=== PATIENT | female | born 1995 | race African-American/Black ===

== ENCOUNTER 2017-08-24 14:24 | Emergency (ER) | payer OTHER ==
[2017-08-24 14:30] VITALS: BP 133/63; PULSE 84; TEMP 98.4; BMI 48.9
--- NOTE | 2017-08-24 15:01 | PDOC ---
History of Present Illness - General Chief Complaint: Chest Pain Stated Complaint: CHEST PAIN - History of Present Illness Initial Comments: 21-year-old female without comorbidities presents for evaluation of one day of chest pain with inspiration after doing physical activity. 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 She has no history of clots malignancies, no surgery, no hematologic disorders. No other associated symptoms besides chest pain with inspiration. 08/24/17 14:57 Past History - Past Medical History Allergies/Adverse Reactions: Allergies Allergy/AdvReac Type Severity Reaction Status Date / Time No Known Allergies Allergy Verified 08/24/17 14:28 Home Medications: Ambulatory Orders Ibuprofen [Motrin -] 600 mg PO TID #30 tablet 08/24/17 COPD: No - Suicide/Smoking/Psychosocial Hx Smoking History: Never smoked Information on smoking cessation initiated: No Hx Alcohol Use: No Drug/Substance Use Hx: No Substance Use Type: None Review of Systems - Review of Systems Cardiac (ROS): Yes: Chest Pain All Other Systems: Reviewed and Negative *Physical Exam - Vital Signs Last Vital Signs Temp Pulse Resp BP Pulse Ox 98.4 F 84 18 133/63 100 08/24/17 14:28 08/24/17 14:28 08/24/17 14:28 08/24/17 14:28 08/24/17 14:28 - Physical Exam Comments: GENERAL: The patient is awake, alert, and fully oriented, in no acute distress. HEAD: Normal with no signs of trauma. EYES: sclera anicteric, conjunctiva clear. ENT: Ears normal NECK: Normal range of motion LUNGS: Breath sounds equal, clear to auscultation bilaterally. No wheezes, and no crackles. HEART: S1 and S2 without murmur, rub or gallop. There is tenderness at the left costochondral junction on about ribs 3 and 4 ABDOMEN: Soft, nontender, normoactive bowel sounds. No guarding, no rebound. No masses. EXTREMITIES: Normal range of motion, no edema. No clubbing or cyanosis. No cords, erythema, or tenderness. Compartments are soft and nontender. NEUROLOGICAL: Cranial nerves II through XII grossly intact. Normal speech, normal gait. PSYCH: Normal mood, normal affect. SKIN: Warm, Dry, normal turgor, no rashes or lesions noted. 08/24/17 14:58 Medical Decision Making - Medical Decision Making Given the patient's past medical history recent increase in physical activity and reproducible chest pain feel it safe to let her go with a diagnosis of costochondritis. 08/24/17 14:59 08/24/17 15:00 VSS EKG normal *DC/Admit/Observation/Transfer Diagnosis at time of Disposition: Costochondral chest pain - Discharge Dispostion Disposition: HOME Condition at time of disposition: Stable Decision to Admit order: No - Referrals Referrals: Eliana Porras MD [Primary Care Provider] - - Patient Instructions Printed Discharge Instructions: Aide, DI for Costochondritis Additional Instructions: Return to the emergency room should her symptoms worsen or go unresolved. Please take the Motrin that I prescribed few with food 3 times a day if you have pain. Please discontinue the medication if it bothers her stomach. Return to the emergency room should her symptoms worsen or go unresolved and follow-up with your primary care doctor in 1-2 days for further evaluation and treatment options. - Post Discharge Activity
--- NOTE | 2017-08-25 14:22 | EKG ---
Test Reason : Blood Pressure : / mmHG Vent. Rate : 086 BPM Atrial Rate : 086 BPM P-R Int : 138 ms QRS Dur : 072 ms QT Int : 344 ms P-R-T Axes : 051 010 028 degrees QTc Int : 411 ms NORMAL SINUS RHYTHM NORMAL ECG WHEN COMPARED WITH ECG OF 23-MAR-2017 12:20, NO SIGNIFICANT CHANGE WAS FOUND Confirmed by ALIDA VERMA MD ([id number]) on 08/25/2017 2:22:30 PM Referred By: Confirmed By:ALIDA VERMA MD
== END 2017-08-24 15:04 | disposition home or self-care (01) ==
LOC: JERFT 14:24
DX: M94.0 Chondrocostal junction syndrome [Tietze] (principal)
CPT/HCPCS: 93005; 93010; 99281-25

== ENCOUNTER 2019-02-02 11:28 | Emergency (ER) | payer OTHER ==
[2019-02-02 11:43] VITALS: BP 133/82; PULSE 80; TEMP 98; BMI 41.2
--- NOTE | 2019-02-02 12:15 | PDOC ---
History of Present Illness - General Chief Complaint: Pain Stated Complaint: RT KNEE PAIN Time Seen by Provider: 02/02/19 12:02 History Source: Patient - History of Present Illness Initial Comments: 02/02/19 12:32 Chief complaint: Right knee injury Patient is a 23-year-old female, healthy, who was walking yesterday with grocery bags, tripped on the sidewalk, fell on her right knee. Patient complaining of pain to same. Patient is ambulatory but limping. Patient took Motrin 200 mg this morning. Patient denies GENERAL/CONSTITUTIONAL: No fever, weakness. dizziness HEAD, EYES, EARS, NOSE AND THROAT: No change in vision. No ear pain or discharge. No sore throat. CARDIOVASCULAR: No chest pain RESPIRATORY: No shortness of breath or cough GASTROINTESTINAL: No pain, nausea, vomiting, diarrhea or constipation GENITOURINARY: No dysuria MUSCULOSKELETAL: No neck or back pain, + right knee SKIN: No rash NEUROLOGIC: No headache, vertigo, loss of consciousness, or loss of sensation. GENERAL: The patient is awake, alert, and fully oriented, in no acute distress. HEAD: Normal with no signs of trauma. EYES: Pupils equal, round and reactive to light, sclera anicteric, conjunctiva clear. ENT: pharynx: no erythema, no exudate, uvula midline NECK: supple CHEST: clear, nontender, rr ABD: soft, nontender BACK: no tenderness or signs of injury EXTREMITIES: Right knee with no gross swelling, mild tenderness across the anterior area, painful range of motion, no other tenderness or findings to the extremity, neurovascular intact. Rest of extremities, normal range of motion, no edema. NEUROLOGICAL: Normal speech, no focal findings, limping secondary to pain SKIN: Warm, Dry Past History - Past Medical History Allergies/Adverse Reactions: Allergies Allergy/AdvReac Type Severity Reaction Status Date / Time No Known Drug Allergies Allergy Verified 02/02/19 11:43 lactose AdvReac Intermediate DIARRHEA / Verified 02/02/19 11:43 ABDOMINAL CRAMPING Home Medications: Ambulatory Orders NK [No Known Home Medication] 02/01/19 Anemia: No Asthma: No Cancer: No Cardiac Disorders: No CVA: No COPD: No CHF: No Dementia: No Diabetes: No GI Disorders: No Disorders: No HTN: No Hypercholesterolemia: No Liver Disease: No Seizures: No Thyroid Disease: No - Surgical History Abdominal Surgery: No Appendectomy: No Cardiac Surgery: No Cholecystectomy: No Lung Surgery: No Neurologic Surgery: No Orthopedic Surgery: No - Psycho Social/Smoking Cessation Hx Smoking History: Never smoked Have you smoked in the past 12 months: No Hx Alcohol Use: Yes (RARELY) Drug/Substance Use Hx: No Substance Use Type: Alcohol Hx Substance Use Treatment: No *Physical Exam - Vital Signs Last Vital Signs Temp Pulse Resp BP Pulse Ox 98 F 80 18 133/82 98 02/02/19 11:40 02/02/19 11:40 02/02/19 11:40 02/02/19 11:40 02/02/19 11:40 Medical Decision Making - Medical Decision Making 02/02/19 12:34 Healthy 23-year-old female who tripped and fell yesterday with right knee pain. Patient will get an x-ray due to falling on her knee. She is ambulatory but limping. Will give Motrin. Will reassess. X-ray shows no acute issues, patient would prefer cane over crutches she will follow with Ortho Discussed issues, findings, results, applicable medications and treatments and follow-up. All these were understood and all questions were answered 02/02/19 12:57 Discharge - Discharge Information Problems reviewed: Yes Clinical Impression/Diagnosis: Right knee injury Qualifiers: Encounter type: initial encounter Qualified Code(s): S89.91XA - Unspecified injury of right lower leg, initial encounter Condition: Stable Disposition: HOME - Admission No - Follow up/Referral Referrals: Roby Molina MD [Primary Care Provider] - - Patient Discharge Instructions Additional Instructions: Elevate, wear splint You can apply ice for 20 minutes every 2 hours for the next 2 days Motrin 600 mg every 6 hours for pain. Call the orthopedist tomorrow - Post Discharge Activity
[2019-02-02] MEDS ORDERED: IBUPROFEN 400 MG TABLET (FP) PO ONE ×2 (12:18→12:54)
== END 2019-02-02 13:11 | disposition home or self-care (01) ==
LOC: JERFT 11:28
DX: S89.81XA Other specified injuries of right lower leg, initial encounter (principal); M25.561 Pain in right knee; W01.0XXA Fall on same level from slipping, tripping and stumbling without subsequent striking against object, initial encounter; Y93.01 Activity, walking, marching and hiking; Y92.480 Sidewalk as the place of occurrence of the external cause; Y99.8 Other external cause status; E66.9 Obesity, unspecified; Z68.41 Body mass index [BMI] 40.0-44.9, adult; Z91.02 Food additives allergy status
CPT/HCPCS: 73562-TC-RT-FY; 99281-25

== ENCOUNTER 2019-02-05 08:23 | Inpatient (IN) | payer OTHER ==
[2019-02-01 11:32] VITALS: BMI 41.2
[2019-02-05] MEDS ORDERED: BUPIVACAINE HCL/PF 2.5 MG/ML - 30 ML VIAL IJ ONE (08:35)
[2019-02-05] MEDS ORDERED: BUPIVACAINE HCL/PF 0.5% (5 MG/ML) 30 ML VIAL IJ ONE (08:38)
[2019-02-05] MEDS ORDERED: MIDAZOLAM HCL 2 MG/2 ML SINGLE DOSE VIAL ONE ×2 (08:38→08:54)
[2019-02-05] MEDS ORDERED: ROCURONIUM BROMIDE 50 MG/5 ML SYRINGE ONE (08:53)
[2019-02-05] MEDS ORDERED: PROPOFOL 20 ML ONE (08:53)
[2019-02-05] MEDS ORDERED: fentaNYL CITRATE 250 MCG/5 ML VIAL ONE (08:53)
[2019-02-05] MEDS ORDERED: ceFAZolin SODIUM 1 GM VIAL ONE (08:54)
[2019-02-05] MEDS ORDERED: KETOROLAC TROMETHAMINE 30 MG/1 ML VIAL ONE (08:54)
[2019-02-05] MEDS ORDERED: DEXAMETHASONE SOD PHOSPHATE 4 MG/1 ML VIAL ONE (08:54)
[2019-02-05] MEDS ORDERED: LIDOCAINE HCL/PF 2% SDV 5ML VIAL ONE (08:54)
[2019-02-05] MEDS ORDERED: ONDANSETRON 4 MG/2 ML VIAL ONE (08:54)
--- NOTE | 2019-02-05 09:34 | HP ---
Admitting History and Physical - Admission Chief Complaint: Morbid obesity History Source: Patient Limitations to Obtaining History: No Limitations - Past Medical History ...LMP Comment: 01/21/19 ...: No - Smoking History Smoking history: Never smoked Have you smoked in the past 12 months: No - Alcohol/Substance Use Hx Alcohol Use: Yes (RARELY) - Social History ADL: Independent Home Medications - Allergies Allergies/Adverse Reactions: Allergies Allergy/AdvReac Type Severity Reaction Status Date / Time No Known Drug Allergies Allergy Verified 02/02/19 11:43 lactose AdvReac Intermediate DIARRHEA / Verified 02/02/19 11:43 ABDOMINAL CRAMPING - Home Medications Home Medications: Ambulatory Orders NK [No Known Home Medication] 02/01/19 Family Medical History Family History: Unremarkable Review of Systems - Review of Systems Constitutional: denies: Chills, Fever Neck: reports: No Symptoms Cardiovascular: reports: No Symptoms Respiratory: reports: No Symptoms Gastrointestinal: reports: No Symptoms Neurological: reports: No Symptoms Pain Intensity: 0 Physical Examination Vital Signs: Vital Signs Temperature 98.6 F 02/05/19 08:49 Pulse Rate 81 02/05/19 08:49 Respiratory Rate 18 02/05/19 08:49 Blood Pressure 116/79 02/05/19 08:49 O2 Sat by Pulse Oximetry (%) Constitutional: Yes: Calm Cardiovascular: Yes: WNL Respiratory: Yes: WNL Gastrointestinal: Yes: Soft, Abdomen, Obese Neurological: Yes: Alert, Oriented Problem List - Problems (1) Morbid obesity due to excess calories Code(s): E66.01 - MORBID (SEVERE) OBESITY DUE TO EXCESS CALORIES (2) BMI 40.0-44.9, adult Code(s): Z68.41 - BODY MASS INDEX (BMI) 40.0-44.9, ADULT Assessment/Plan Laparoscopic possible open vertical sleeve gastrectomy possible liver biopsy, upper endoscopy
[2019-02-05] MEDS ORDERED: DESFLURANE GAS 240 ML BOTTLE IH ONE (10:16)
[2019-02-05] MEDS ORDERED: BUPIVACAINE HCL/PF 0.25% (2.5MG/ML) 10 ML VIAL IJ ONE (10:36)
[2019-02-05] MEDS ORDERED: GLYCOPYRROLATE 0.2 MG/1 ML VIAL ONE (10:44)
[2019-02-05] MEDS ORDERED: SODIUM CHLORIDE 1,000 ML IV SCH (11:30)
--- NOTE | 2019-02-05 11:31 | OPR ---
Operative Note Operative Date: 02/05/19 Pre-Operative Diagnosis: Morbid obesity; BMI 41.3 Operation: 1. Diagnostic laparoscopy. 2. Laparoscopic vertical sleeve gastrectomy. 3. Laparoscopic wedge liver biopsy. 4. Laparoscopic oversewing of gastric staple line Post-Operative Diagnosis: Same as Pre-op (as well as hepatomegaly and oozing from gastric staple line) Surgeon: Marbin Rubi Seismic Engineer: Mary Lou Diana Anesthesia: General Specimens Removed: Greater curvature of stomach. Liver biopsy. Estimated Blood Loss (mls): 30 Drains & Tubes with Location: 36 Fr Bougie Operative Report Dictated: Yes
[2019-02-05] MEDS ORDERED: FAMOTIDINE 20 MG/50 ML IVPB 20 MG/50 ML MG IVPB ONE (11:41)
[2019-02-05] MEDS: METOCLOPRAMIDE HCL INJECTION 10 MG/2 ML VIAL IVPUSH SCH ×2 (11:50→17:30)
[2019-02-05] MEDS ORDERED: LABETALOL HCL 5 MG/1 ML (100MG/20 ML VIAL) ONE (11:55)
[2019-02-05] MEDS: ACETAMINOPHEN 1000 MG/100 ML VIAL (NON FORMULARY) IVPB SCH ×2 (12:05→17:40)
[2019-02-05] MEDS ORDERED: ONDANSETRON 4 MG/2 ML VIAL IVPUSH PRN (12:07)
[2019-02-05] MEDS ORDERED: oxyCODONE HCL 5 MG TABLET PO PRN ×2 (12:07)
[2019-02-05] MEDS ORDERED: LABETALOL HCL 5 MG/1 ML (100MG/20 ML VIAL) IVPUSH ONE ×2 (12:08→12:34)
--- NOTE | 2019-02-05 12:08 | SPEC ---
DATE OF OPERATION: 02/05/2019 SURGEON: Alden Rubi MD RADIO DIVISION LIEUTENANT: ANGEL Bunch PREOPERATIVE DIAGNOSIS: Morbid obesity. POSTOPERATIVE DIAGNOSES: 1. Morbid obesity. 2. Hepatomegaly. 3. Oozing from gastric staple line. PROCEDURES: Diagnostic laparoscopy, laparoscopic vertical sleeve gastrectomy, laparoscopic wedge liver biopsy, and laparoscopic over sewing of gastric staple line for oozing. SPECIMEN: Greater curvature of the stomach and liver biopsy. ESTIMATED BLOOD LOSS: 30 mL. DRAINS: None. ANESTHESIA: GET. BOUGIE SIZE: 36-Colombian. REASON FOR PROCEDURE: This is a 23-year-old female who presents for weight loss options. After describing different options, she decided to proceed with laparoscopic, possible open, vertical sleeve gastrectomy, possible liver biopsy, upper endoscopy. The patient was seen by the respective subspecialties and cleared for surgery. The risks and benefits of the procedure were explained. These included bleeding, infection, hernia, OH, DVT, PE, injury to surrounding structures including the liver, colon, bowel, spleen, esophagus, vessel injury, nerve injury, weight regain, gastric leak, staple line leak, sleeve leak, obstruction, vitamin deficiency, hair loss and as some of the possible complications. The patient understood and signed informed consent. DESCRIPTION OF PROCEDURE: The patient was placed supine on the operating room table. The patient underwent general endotracheal intubation. The arms were brought out at 90 degrees and secured. A footboard was placed and the legs were secured laterally with padding. The abdomen was prepped and draped in the usual sterile fashion. A timeout was performed. An incision was made in the left upper quadrant and a Veress needle inserted. Pneumoperitoneum was established. Subsequently, the Veress needle was removed and a 5-mm trocar was placed under direct visualization with the laparoscope. The laparoscopic camera was then inserted and inspection of the abdominal cavity was performed. An incision was then made in the supraumbilical area and a 15-mm trocar was placed under direct visualization. A 5-mm trocar was then placed in the right upper quadrant and a 5-mm trocar was placed below the left subcostal margin. A stab wound was made in the subxiphoid area and a Ellie clamp inserted and removed to dilate the tract. A Mando liver retractor was inserted. The post was secured at the bedside by the nursing staff. The patient was placed in steep reverse Trendelenburg position and the Mando liver retractor was used to secure the liver towards the anterior abdominal wall. The pylorus was identified and 6 cm proximal to it, the lesser sac was entered using the LigaSure device. All lateral attachments to the greater curvature of the stomach, including the short gastric vessels, were ligated using the LigaSure device toward the gastrosplenic and gastrophrenic ligaments. Once this was done in its entirety, it was confirmed that all tubes within the nasal or oropharyngeal cavity, including a temperature probe were removed by Anesthesia. The bougie was then inserted by Anesthesia. Transection of the stomach was then begun staying adjacent to the bougie but away from the angularis. Transection of the stomach was performed near the portion of the stomach where the lesser sac was entered. Two laparoscopic Endo-YAQUELIN black judy were used at this location. Laparoscopic Endo YAQUELIN purple staple loads were then used for the remainder of the transection until the greater curvature of the stomach was fully transected. This was done staying close to the bougie. Care was taken to stay away from the angle of His cephalad. The staple line was then inspected. Hemostasis was identified. A leak test was then performed. It was clamped distally to the staple line. Irrigation solution was placed in the left upper quadrant and air was insufflated by Anesthesia into the sleeve. No leaks were identified. No obstruction was identified. This was done through the entirety of the staple line. The stomach was suctioned and the bougie removed fully intact under direct visualization. At this point, the irrigation solution was suctioned and again, hemostasis was noted. A wedge liver biopsy was then performed. The left lobe of the liver was identified. A portion of the edge of the left lobe of the liver was grasped. Using electrocautery, a wedge of the left liver was excised. The specimen was removed and sent off the field. Hemostasis of the wedge liver biopsy site was attained and noted using electrocautery. The 15-mm supraumbilical trocar was then removed and the greater curvature specimen removed from the site using a sponge stick brewer. A Jasbir-Gianna device was then used to close the fascia with a 0 Vicryl suture at the site. Again, hemostasis was noted. The Mando liver retractor was then removed under direct visualization. Pneumoperitoneum was desufflated. Because of oozing at the gastric staple line, the staple line needed to be oversewn. This was done with an Endo Stitch device with a Surgitek suture. Hemostasis was noted at all incision sites and Marcaine was injected at all incision sites. A 3-0 Vicryl suture was used to close the deep subcutaneous tissue at the 15-mm incision site. All incision sites were closed using 4-0 Biosyn. Sterile dressings were applied. The patient tolerated the procedure well and was transferred to the recovery room in stable condition. ALDEN RUBI M.D. [id number]
[2019-02-05 12:15] LABS: HEMATOCRIT 37.9 % (32.4-45.2); HEMOGLOBIN 12.1 GM/dl (10.7-15.3); MCH 26.1 pg (25.7-33.7); MCHC 32.1 g/dl (32.0-36.0); MEAN CELL VOLUME 81.3 fl (80-96); PLATELET COUNT 303 K/MM3 (134-434); RBC 4.66 M/mm3 (3.60-5.2); WHITE BLOOD COUNT 7.8 K/mm3 (4.0-10.8)
[2019-02-05] MEDS ORDERED: FAMOTIDINE 20 MG PREMIXED IVPB IVPB ONE (12:30)
--- NOTE | 2019-02-05 12:31 | SURG ---
Surgery Automotive Software Engineer Note Automotive Software Engineer: Mary Lou Diana PA-C Date of Service: 02/05/19 Diagnosis: Morbid obesity; BMI 41.3 Procedure: 1. Diagnostic laparoscopy. 2. Laparoscopic vertical sleeve gastrectomy. 3. Laparoscopic wedge liver biopsy. 4. Laparoscopic oversewing of gastric staple line I was present for the entirety of the operative procedure. For further detail, please refer to operative report. Visit type - Case Type Case Type: Scheduled - Emergency Emergency Visit: No - New patient This patient is new to me today: Yes Date on this admission: 02/05/19
[2019-02-05] MEDS ORDERED: hydrALAZINE HCL 20 MG/ML VIAL IVPUSH ONE (12:34)
[2019-02-05 12:37] LABS: ALBUMIN 3.7 g/dl (3.4-5.0); BILIRUBIN,TOTAL 0.3 mg/dl (0.2-1); CALCIUM 8.7 mg/dl (8.5-10); CREATININE 0.9 mg/dl (0.55-1.3); TOT PROT 7.9 g/dl (6.4-8.2)
[2019-02-05] MEDS: ONDANSETRON 4 MG/2 ML VIAL IVPUSH SCH ×2 (17:45→20:01)
[2019-02-05] MEDS: HYDROmorphone HCL CARPU-JECT 1 MG/1 ML DISP.SYRIN IVPB PRN (20:02)
[2019-02-05] MEDS: FAMOTIDINE 20 MG/50 ML IVPB 20 MG/50 ML MG IVPB SCH (21:45)
[2019-02-05] MEDS: ENOXAPARIN NA (PORCINE) 40 MG/0.4 ML DISP.SYRIN SQ SCH (22:01)
[2019-02-06] MEDS: ACETAMINOPHEN 1000 MG/100 ML VIAL (NON FORMULARY) IVPB SCH ×2 (00:08→05:45)
[2019-02-06] MEDS: METOCLOPRAMIDE HCL INJECTION 10 MG/2 ML VIAL IVPUSH SCH ×2 (00:10→05:45)
[2019-02-06] MEDS: ONDANSETRON 4 MG/2 ML VIAL IVPUSH SCH ×3 (00:10→06:41)
[2019-02-06] MEDS: HYDROmorphone HCL CARPU-JECT 1 MG/1 ML DISP.SYRIN IVPB PRN ×2 (03:15→10:15)
[2019-02-06 05:48] VITALS: BP 142/85; PULSE 98; TEMP 98.6
--- NOTE | 2019-02-06 08:03 | DS ---
Physical Exam: SUBJECTIVE: Patient seen and examined OBJECTIVE: Vital Signs Temperature 98.6 F 02/06/19 05:46 Pulse Rate 98 H 02/06/19 05:46 Respiratory Rate 19 02/06/19 05:46 Blood Pressure 142/85 02/06/19 05:46 O2 Sat by Pulse Oximetry (%) 100 02/06/19 03:09 PHYSICAL EXAM GENERAL: The patient is awake, alert, and fully oriented, in no acute distress. HEAD: Normal with no signs of trauma. EYES: PERRL, extraocular movements intact, sclera anicteric, conjunctiva clear. NECK: Trachea midline, full range of motion, supple. LUNGS: Breath sounds equal, clear to auscultation bilaterally, no wheezes, no crackles, no accessory muscle use. HEART: Regular rate and rhythm, S1, S2 without murmur, rub or gallop. ABDOMEN: Soft, nontender, nondistended, no guarding, no rebound, no hepatosplenomegaly, no masses. EXTREMITIES: warm, well-perfused, no edema. NEUROLOGICAL: Cranial nerves II through XII grossly intact. Normal speech, gait not observed. PSYCH: Normal mood, normal affect. SKIN: Warm, dry, normal turgor, no rashes or lesions noted. LABS CBC,CMP WBC 7.8 K/mm3 (4.0-10.8) 02/05/19 12:00 RBC 4.66 M/mm3 (3.60-5.2) 02/05/19 12:00 Hgb 12.1 GM/dl (10.7-15.3) 02/05/19 12:00 Hct 37.9 % (32.4-45.2) 02/05/19 12:00 MCV 81.3 fl (80-96) 02/05/19 12:00 MCH 26.1 pg (25.7-33.7) 02/05/19 12:00 MCHC 32.1 g/dl (32.0-36.0) 02/05/19 12:00 RDW 14.0 % (11.6-15.6) 02/05/19 12:00 Plt Count 303 K/MM3 (134-434) 02/05/19 12:00 MPV 10.0 fl (7.5-11.1) 02/05/19 12:00 Sodium 135 mmol/L (136-145) L 02/05/19 12:00 Potassium 4.0 mmol/L (3.5-5.1) 02/05/19 12:00 Chloride 103 mmol/L (98-107) 02/05/19 12:00 Carbon Dioxide 25 mmol/L (21-32) 02/05/19 12:00 Anion Gap 7 MMOL/L (8-16) L 02/05/19 12:00 BUN 13.0 mg/dl (7-18) 02/05/19 12:00 Creatinine 0.9 mg/dl (0.55-1.3) 02/05/19 12:00 Est GFR (CKD-EPI)AfAm 104.45 02/05/19 12:00 Est GFR (CKD-EPI)NonAf 90.12 02/05/19 12:00 Random Glucose 115 mg/dl (74-106) H 02/05/19 12:00 Calcium 8.7 mg/dl (8.5-10) 02/05/19 12:00 Total Bilirubin 0.3 mg/dl (0.2-1) 02/05/19 12:00 AST 29 U/L (15-37) 02/05/19 12:00 ALT 24 U/L (13-61) 02/05/19 12:00 Alkaline Phosphatase 43 U/L (45-117) L 02/05/19 12:00 Total Protein 7.9 g/dl (6.4-8.2) 02/05/19 12:00 Albumin 3.7 g/dl (3.4-5.0) 02/05/19 12:00 HOSPITAL COURSE: Date of Admission:02/05/19 Date of Discharge: 02/06/19 HOSPITAL COURSE: The patient was admitted to the Med-Surg Unit after elective bariatric surgery. Now, s/p laparoscopic vertical sleeve gastrectomy. The day of surgery, the patient ambulated the hallways with assistance. The patient was monitored with remote tele/continuous pulse ox. Narcotic and non-narcotic pain management control was achieved with oral and IV pain control. Upper GI series was obtained the following morning and no leak, extravastion or gastric outlet obstruction. Started on a Bariatric Stage 1 diet and tolerated well. Ashley-operative IV ABX were administered in addition to GI prophylaxis. DVT prophylaxis was achieved with SCDs and early ambulation. The discharge instructions and an oral pain management plan were reviewed with the patient. All questions answered. Above plan discussed with Dr. Rubi and agreed. Minutes to complete discharge: 20 Visit type - Case Type Case Type: Scheduled - Emergency Emergency Visit: No - New patient This patient is new to me today: No - Critical Care Critical Care patient: No
[2019-02-06 08:05] LABS: HEMATOCRIT 35.7 % (32.4-45.2); HEMOGLOBIN 11.6 GM/dl (10.7-15.3); MCH 26.5 pg (25.7-33.7); MCHC 32.4 g/dl (32.0-36.0); MEAN CELL VOLUME 81.8 fl (80-96); MEAN PLT VOLUME 9.8 fl (7.5-11.1); PLATELET COUNT 285 K/MM3 (134-434); RBC 4.36 M/mm3 (3.60-5.2); RDW 13.6 % (11.6-15.6); WHITE BLOOD COUNT 8.7 K/mm3 (4.0-10.8)
[2019-02-06 08:15] LABS: ALBUMIN 3.5 g/dl (3.4-5.0); BILIRUBIN,TOTAL 0.5 mg/dl (0.2-1); CALCIUM 8.7 mg/dl (8.5-10); CREATININE 0.8 mg/dl (0.55-1.3); POTASSIUM 3.7 mmol/L (3.5-5.1); TOT PROT 7.4 g/dl (6.4-8.2)
[2019-02-06] MEDS ORDERED: oxyCODONE HCL 5 MG TABLET PO PRN (10:35)
[2019-02-06] MEDS: FAMOTIDINE 20 MG/50 ML IVPB 20 MG/50 ML MG IVPB SCH (10:40)
[2019-02-06] MEDS: ENOXAPARIN NA (PORCINE) 40 MG/0.4 ML DISP.SYRIN SQ SCH (10:40)
[2019-02-06] MEDS ORDERED: SODIUM CHLORIDE 1,000 ML IV SCH (10:45)
--- NOTE | 2019-02-08 15:15 | PATH ---
Surgical Pathology Report Patient Name: LARRY TRAYLOR Med. Rec. #: [id number] /Age/Gender: 1995 (Age: 23) / F Account: [id number] Location: [facility] MED-SURG Taken: 02/05/2019 Received: 02/05/2019 Reported: 02/08/2019 Physicians: Marbin Rubi M.D. Specimen(s) Received A: UPPER CURVATURE OF STOMACH B: LIVER BIOPSY Clinical History Morbid obesity Final Diagnosis A. STOMACH, UPPER CURVATURE, LAPAROSCOPIC VERTICAL SLEEVE GASTRECTOMY: PORTION OF STOMACH WITH MODERATE CHRONIC GASTRITIS. IMMUNOHISTOCHEMICAL STAIN FOR H. PYLORI IS NEGATIVE. B. LIVER, BIOPSY: LIVER PARENCHYMA WITH MINIMAL STEATOSIS (<5%). NO INCREASE IN IRON AND FIBROSIS ON PERFORMED SPECIAL STAINS (IRON AND TRICHROME). Electronically Signed Luz Estrada M.D. Gross Description A. Received in formalin, labeled "upper curvature of stomach," is an 88 gram, 17.0 x 3.3 x 3.0 cm. portion of stomach with a stapled margin of resection. The serosa is krishnamurthy-mario with minimal attached fat. The mucosa is krishnamurthy-pink with normal folds. No mucosal masses are identified. Auxiliary Engineer sections are submitted in one cassette. B. Received in formalin labeled "liver biopsy," is a 1.6 x 0.8 x 0.2 cm krishnamurthy portion of soft tissue, consistent with a liver biopsy. The specimen is submitted in toto in one cassette. 02/06/201902/06/2019
== END 2019-02-06 12:21 | disposition home or self-care (01) | DRG 403 ==
LOC: FM/S 08:23
PROVIDERS: ADMIT Surgery; ATTEND Surgery
PROC: 0DB60Z3 Excision of Stomach, Open Approach, Vertical (ICD-10-PCS; principal; 2019-02-05 09:30)
PROC: 0FB20ZX Excision of Left Lobe Liver, Open Approach, Diagnostic (ICD-10-PCS; 2019-02-05 09:30)
DX: E66.01 Morbid (severe) obesity due to excess calories (principal); R16.0 Hepatomegaly, not elsewhere classified; Z68.41 Body mass index [BMI] 40.0-44.9, adult
CPT/HCPCS: 36415; 74241-TC-FY; 80053; 84703; 85027; 94760; J0131; J7030

== ENCOUNTER 2019-02-26 14:05 | Emergency (ER) | payer OTHER ==
--- NOTE | 2019-02-26 14:14 | PDOC ---
Rapid Medical Evaluation Time Seen by Provider: 02/26/19 14:11 Medical Evaluation: Allergies Allergy/AdvReac Type Severity Reaction Status Date / Time No Known Drug Allergies Allergy Verified 02/02/19 11:43 lactose AdvReac Intermediate DIARRHEA / Verified 02/02/19 11:43 ABDOMINAL CRAMPING 02/26/19 14:12 I performed a brief in-person evaluation of this patient. Healthy 23-year-old female history of gastric sleeve presenting with left ankle pain after slip and fall on ice last night, no head trauma or other injuries. Pertinent physical exam findings: Tender left lateral malleolus. Bearing partial weight. I have ordered the following: Ankle x-ray Patient to proceed to [facility] for further evaluation. Discharge Disposition - Diagnosis Left ankle injury - Referrals - Patient Instructions - Post Discharge Activity
[2019-02-26 14:15] VITALS: BP 113/66; PULSE 85; TEMP 98; BMI 36.6
[2019-02-26] MEDS ORDERED: IBUPROFEN 600 MG TABLET (FP) PO ONE ×2 (15:18→15:21)
--- NOTE | 2019-02-26 15:31 | PDOC ---
History of Present Illness - General Chief Complaint: Injury Stated Complaint: LT LEG PAIN Time Seen by Provider: 02/26/19 14:11 History Source: Patient Exam Limitations: No Limitations Past History - Past Medical History Allergies/Adverse Reactions: Allergies Allergy/AdvReac Type Severity Reaction Status Date / Time No Known Drug Allergies Allergy Verified 02/26/19 14:12 lactose AdvReac Intermediate DIARRHEA / Verified 02/26/19 14:12 ABDOMINAL CRAMPING Home Medications: Ambulatory Orders NK [No Known Home Medication] 02/01/19 Anemia: No Asthma: No Cancer: No Cardiac Disorders: No CVA: No COPD: No CHF: No Dementia: No Diabetes: No GI Disorders: No Disorders: No HTN: No Hypercholesterolemia: No Liver Disease: No Seizures: No Thyroid Disease: No - Surgical History Abdominal Surgery: No Appendectomy: No Cardiac Surgery: No Cholecystectomy: No Lung Surgery: No Neurologic Surgery: No Orthopedic Surgery: No - Immunization History Immunization Up to Date: Yes - Psycho Social/Smoking Cessation Hx Smoking History: Never smoked Have you smoked in the past 12 months: No Hx Alcohol Use: No Drug/Substance Use Hx: No Substance Use Type: Alcohol Hx Substance Use Treatment: No *Physical Exam - Vital Signs Last Vital Signs Temp Pulse Resp BP Pulse Ox 98.0 F 85 18 113/66 100 02/26/19 14:13 02/26/19 14:13 02/26/19 14:13 02/26/19 14:13 02/26/19 14:13 - Physical Exam General Appearance: No: Apparent Distress Extremity: positive: Other (minimal TTP along L lateral malleolus, no significant swelling/effusion noted, no deformity ) Integumentary: negative: Swelling, Ecchymosis, Bruising Neurologic: positive: Alert, Normal Mood/Affect ED Treatment Course - Medications Given in the ED: ED Medications Discontinued Medications Generic Name Dose Route Start Last Admin Trade Name Freq PRN Reason Stop Dose Admin Ibuprofen 600 mg 02/26/19 15:18 02/26/19 15:24 Motrin - PO 02/26/19 15:19 600 mg ONCE ONE Administration Medical Decision Making - Medical Decision Making 23 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 Denies other injuries Xray negative for fracture likely minor sprain L ankle rafat-wrapped, given crutches, given motrin for pain stable for dc 02/26/19 15:28 Discharge - Discharge Information Problems reviewed: Yes Clinical Impression/Diagnosis: Left ankle sprain Qualifiers: Encounter type: initial encounter Involved ligament of ankle: unspecified ligament Qualified Code(s): S93.402A - Sprain of unspecified ligament of left ankle, initial encounter Condition: Stable Disposition: HOME - Admission No - Additional Discharge Information Prescription Drug Monitoring Program (I-STOP) results: I-STOP not reviewed - Follow up/Referral Referrals: Roby Molina MD [Primary Care Provider] - - Patient Discharge Instructions Patient Printed Discharge Instructions: DI for Ankle Sprain Additional Instructions: Thank you for choosing [facility]. It was a pleasure taking care of you. You may take Motrin 600 mg every 6 hours by mouth as needed for mild to moderate pain. Take Motrin with food. Apply ice over site of injury Rest and keep it elevated Return to the Emergency Department if your symptoms worsen or persist or have other concerning symptoms. - Post Discharge Activity
== END 2019-02-26 15:36 | disposition home or self-care (01) ==
LOC: JERFT 14:05
DX: S93.402A Sprain of unspecified ligament of left ankle, initial encounter (principal); W00.2XXA Other fall from one level to another due to ice and snow, initial encounter; Y93.89 Activity, other specified; Y99.8 Other external cause status; Z98.84 Bariatric surgery status; Y92.018 Other place in single-family (private) house as the place of occurrence of the external cause
CPT/HCPCS: 73610-TC-LT-FY; 99282-25

== ENCOUNTER 2019-03-19 12:36 | Emergency (ER) | payer OTHER ==
[2019-03-19 12:55] VITALS: BP 104/68; PULSE 82; TEMP 98.2; BMI 36.6
[2019-03-19] MEDS ORDERED: IBUPROFEN 600 MG TABLET (FP) PO ONE ×2 (12:59→13:02)
--- NOTE | 2019-03-19 12:59 | PDOC ---
Rapid Medical Evaluation Chief Complaint: Pain, Acute Time Seen by Provider: 03/19/19 12:55 Medical Evaluation: Allergies Allergy/AdvReac Type Severity Reaction Status Date / Time No Known Drug Allergies Allergy Verified 02/26/19 14:12 lactose AdvReac Intermediate DIARRHEA / Verified 02/26/19 14:12 ABDOMINAL CRAMPING Vital Signs Temp Pulse Resp BP Pulse Ox 98.2 F 82 17 104/68 97 03/19/19 12:50 03/19/19 12:50 03/19/19 12:50 03/19/19 12:50 03/19/19 12:50 03/19/19 12:56 This patient had rapid medical evaluation in triage cc:s/p fall HPI:Patient reports pain to left knee, s/p trip and fall yesterday with no head strike PE: nad unlabored breathing minimal swelling of knee FROM, no crepitus Orders: analgesia This patient will proceed to ed for further evaluation. Discharge Disposition - Diagnosis Knee pain - Referrals - Patient Instructions - Post Discharge Activity
--- NOTE | 2019-03-19 13:20 | PDOC ---
History of Present Illness - General Chief Complaint: Pain, Acute Stated Complaint: LT KNEE PAIN Time Seen by Provider: 03/19/19 12:55 - History of Present Illness Initial Comments: 03/19/19 13:18 23-year-old female without comorbidities presents for left knee pain after miss stepping coming down steps last night she felt a twisting her knee. Past History - Past Medical History Allergies/Adverse Reactions: Allergies Allergy/AdvReac Type Severity Reaction Status Date / Time No Known Drug Allergies Allergy Verified 02/26/19 14:12 lactose AdvReac Intermediate DIARRHEA / Verified 02/26/19 14:12 ABDOMINAL CRAMPING Home Medications: Ambulatory Orders NK [No Known Home Medication] 02/01/19 Anemia: No Asthma: No Cancer: No Cardiac Disorders: No CVA: No COPD: No CHF: No Dementia: No Diabetes: No GI Disorders: No Disorders: No HTN: No Hypercholesterolemia: No Liver Disease: No Seizures: No Thyroid Disease: No - Surgical History Abdominal Surgery: No Appendectomy: No Cardiac Surgery: No Cholecystectomy: No Lung Surgery: No Neurologic Surgery: No Orthopedic Surgery: No - Immunization History Immunization Up to Date: Yes - Psycho Social/Smoking Cessation Hx Smoking History: Never smoked Have you smoked in the past 12 months: No Hx Alcohol Use: No Drug/Substance Use Hx: No Substance Use Type: Alcohol Hx Substance Use Treatment: No Review of Systems - Review of Systems Musculoskeletal: Yes: Joint Pain *Physical Exam - Vital Signs Last Vital Signs Temp Pulse Resp BP Pulse Ox 98.2 F 82 17 104/68 97 03/19/19 12:50 03/19/19 12:50 03/19/19 12:50 03/19/19 12:50 03/19/19 12:50 - Physical Exam 03/19/19 13:18 Left knee skin color and temperature are normal there is no effusion. Extensor mechanism is intact. Range of motion 0-30 beyond that causes pain she has medial lateral joint line tenderness no evidence of instability however she does guard with stability testing thigh and calf are soft and nontender normal hip and ankle range of motion neurovascular intact ED Treatment Course - Medications Given in the ED: ED Medications Discontinued Medications Generic Name Dose Route Start Last Admin Trade Name Freq PRN Reason Stop Dose Admin Ibuprofen 600 mg 03/19/19 12:59 03/19/19 13:03 Motrin - PO 03/19/19 13:00 600 mg ONCE ONE Administration Medical Decision Making - Medical Decision Making 03/19/19 13:19 Left knee sprain follow-up with orthopedics most likely meniscal injury Discharge - Discharge Information Problems reviewed: Yes Clinical Impression/Diagnosis: Knee pain Condition: Stable Disposition: HOME - Admission No - Follow up/Referral Referrals: Kali Sargent DO [Staff Physician] - - Patient Discharge Instructions Additional Instructions: Tylenol and Motrin for pain. Weight-bear as tolerated with crutches. Return to the emergency room for worsening symptoms. Without fail follow-up with orthopedic surgery in 2 to 3 days for further evaluation and treatment options. - Post Discharge Activity
== END 2019-03-19 13:33 | disposition home or self-care (01) ==
LOC: JERFT 12:36
DX: M25.562 Pain in left knee (principal); W10.8XXA Fall (on) (from) other stairs and steps, initial encounter; Y93.89 Activity, other specified; Y92.018 Other place in single-family (private) house as the place of occurrence of the external cause; Y99.8 Other external cause status; E73.9 Lactose intolerance, unspecified
CPT/HCPCS: 99282-25

== ENCOUNTER 2019-04-23 13:39 | Emergency (ER) | payer OTHER ==
[2019-04-23 13:46] VITALS: BP 128/90; PULSE 78; TEMP 97.1; BMI 36.6
--- NOTE | 2019-04-23 14:29 | PDOC ---
History of Present Illness - General Chief Complaint: Injury Stated Complaint: R/FOOT PAIN Time Seen by Provider: 04/23/19 13:45 - History of Present Illness Initial Comments: 04/23/19 14:27 23-year-old female without comorbidities presents for right ankle pain. She describes an inversion type injury which occurred yesterday while shopping after stepping off a curb. Past History - Past Medical History Allergies/Adverse Reactions: Allergies Allergy/AdvReac Type Severity Reaction Status Date / Time No Known Drug Allergies Allergy Verified 04/23/19 13:42 lactose AdvReac Intermediate DIARRHEA / Verified 04/23/19 13:42 ABDOMINAL CRAMPING Home Medications: Ambulatory Orders NK [No Known Home Medication] 02/01/19 Anemia: No Asthma: No Cancer: No Cardiac Disorders: No CVA: No COPD: No CHF: No Dementia: No Diabetes: No GI Disorders: No Disorders: No HTN: No Hypercholesterolemia: No Liver Disease: No Seizures: No Thyroid Disease: No - Surgical History Abdominal Surgery: No Appendectomy: No Cardiac Surgery: No Cholecystectomy: No Lung Surgery: No Neurologic Surgery: No Orthopedic Surgery: No - Immunization History Immunization Up to Date: Yes - Psycho Social/Smoking Cessation Hx Smoking History: Never smoked Have you smoked in the past 12 months: No Hx Alcohol Use: No Drug/Substance Use Hx: No Substance Use Type: Alcohol Hx Substance Use Treatment: No Review of Systems - Review of Systems Musculoskeletal: Yes: Joint Pain *Physical Exam - Vital Signs Last Vital Signs Temp Pulse Resp BP Pulse Ox 97.1 F L 78 16 128/90 98 04/23/19 13:45 04/23/19 13:45 04/23/19 13:45 04/23/19 13:45 04/23/19 13:45 - Physical Exam 04/23/19 14:27 Right ankle skin color and temperature normal range of motion is slightly limited. There is no tenderness about the proximal fibula or along its distal course. No tenderness about the medial lateral malleolus base of the fifth metatarsal or navicular. Mild tenderness over the ATFL without instability no gross sensorimotor deficits neurovascular intact. ED Treatment Course - RADIOLOGY Radiology Studies Ordered: Category Date Time Status ANKLE-RIGHT [RAD] Stat Radiology 04/23/19 14:12 Taken Medical Decision Making - Medical Decision Making 04/23/19 14:28 Right ankle x-ray showed no evidence of fracture trauma or destructive process. Right ankle sprain. Weight-bear as tolerated with Aircast and crutches follow- up with Ortho. I have reviewed the pathophysiology with the patient. They are in agreement with the treatment plan all questions were answered to their satisfaction. Understanding for follow-up without fail was also conveyed to the patient. Again they are in agreement. Discharge - Discharge Information Problems reviewed: Yes Clinical Impression/Diagnosis: Right ankle sprain Condition: Stable Disposition: HOME - Admission No - Follow up/Referral Referrals: Roby Molina MD [Primary Care Provider] - - Patient Discharge Instructions Additional Instructions: You may weight-bear as tolerated with use of crutches in the Aircast Tylenol as directed for pain. Return to the emergency room for worsening symptoms. And without fail please follow-up with orthopedic surgery in 1 to 2 days for further evaluation and treatment options. - Post Discharge Activity
== END 2019-04-23 14:38 | disposition home or self-care (01) ==
LOC: JERFT 13:39
PROC: 2W3QX1Z Immobilization of Right Lower Leg using Splint (ICD-10-PCS; principal; 2019-04-23)
DX: S93.401A Sprain of unspecified ligament of right ankle, initial encounter (principal); W10.1XXA Fall (on)(from) sidewalk curb, initial encounter; Y93.01 Activity, walking, marching and hiking; Y92.480 Sidewalk as the place of occurrence of the external cause; Y99.8 Other external cause status
CPT/HCPCS: 29515; 73610-TC-RT-FY; 99283-25